=== PATIENT | male | born 1990 | race Caucasian/White ===

== ENCOUNTER 2017-03-07 16:06 | Emergency (ER) | payer BC ==
[2017-03-07 16:17] VITALS: RESP 16; TEMP 97.5
--- NOTE | 2017-03-07 17:06 | EDPHY ---
H & P Stated Complaint: L elbow injury--tackled playing rugby, no other injuries Time Seen by Provider: 03/07/17 17:03 HPI/ROS: CHIEF COMPLAINT: Left elbow injury HISTORY OF PRESENT ILLNESS: The patient is brought into the emergency department by paramedics as a limited trauma activation. The patient was playing rugby when he sustained a left elbow injury resulting in pain, deformity and numbness to the forearm. The patient did not strike his head or lose consciousness. Paramedics were unable to establish an IV. The patient received 200 mcg of fentanyl intranasally. The patient currently complains of 10/10 pain. He complains of paresthesias in his forearm. He denies weakness. He denies additional injury. REVIEW OF SYSTEMS: A comprehensive 10 point review of systems is otherwise negative aside from elements mentioned in the history of present illness. Source: Patient Exam Limitations: No limitations - Personal History Current Tetanus/Diphtheria Vaccine: Unsure Current Tetanus Diphtheria and Acellular Pertussis (TDAP): Unsure - Medical/Surgical History Hx Asthma: No Hx Chronic Respiratory Disease: No Hx Diabetes: No Hx Cardiac Disease: No Hx Renal Disease: No Hx Cirrhosis: No Hx Alcoholism: No Hx HIV/AIDS: No Hx Splenectomy or Spleen Trauma: No Other PMH: healthy - Social History Smoking Status: Never smoked - Physical Exam Exam: General Appearance: Alert, moderate distress secondary to pain Head: Atraumatic Eyes: Pupils equal, round, reactive ENT, Mouth: No hemotympanum, no oral trauma Neck: Nontender, trachea midline Respiratory: No chest wall tender, subcutaneous air, lungs clear bilaterally Cardiovascular: Regular rate and rhythm Abdomen: Abdomen is soft and nontender, pelvis stable Skin: No lacerations, No abrasion Back: No midline T/L/S pain Extremities: Obvious deformity consistent with a elbow dislocation noted Neurological: Decreased sensation to light touch along the volar aspect of the forearm, 2+ dorsalis pedis and ulnar pulses Constitutional: Initial Vital Signs Temperature (C) 36.4 C 03/07/17 16:14 Heart Rate 89 03/07/17 16:14 Respiratory Rate 16 03/07/17 16:14 Blood Pressure 145/91 H 03/07/17 16:14 O2 Sat (%) 99 03/07/17 16:14 O2 Delivery Mode Nasal Cannula O2 (L/minute) 2 Allergies/Adverse Reactions: No Known Allergies Allergy (Unverified 03/07/17 16:14) Home Medications: Medication Instructions Recorded Hydrocodone/APAP 325 [Bradley 1 - 2 each PO Q6 PRN #20 tab 03/07/17] Medical Decision Making - Diagnostics Imaging: Imaging Impressions Elbow X-Ray 03/07/17 16:09 Impression: Indeterminate age olecranon chip. Equivocal nondisplaced radial head fracture. Recommendation: Treating the elbow as if there is a fracture and obtaining follow-up x-rays in 7-10 days. Procedures: Procedure: Dislocation reduction. Indication: Dislocation The elbow was reduced in the usual fashion without complications. Post reduction the patient's neurovascular exam is normal. Post reduction x-ray demonstrates reduction of the joint to the anatomic position. The procedure was performed by myself. Procedure: Splint placement. A ortho glass posterior splint was applied to the left upper extremity by the tech. After application of the splint I returned and re-examined the patient. The splint was adequately immobilizing the joint and distal to the splint the patient's circulation and sensation was intact. ED Course/Re-evaluation: The patient presents to the ED with an obvious elbow dislocation. The patient' s elbow was reduced by myself without complication after my clinical examination. Radiographs post reduction do demonstrate a small chip fracture off the olecranon a possible nondisplaced radial head fracture. The patient was noted to be neurologically intact following the reduction. The patient will be placed in a posterior splint. The patient will follow up with an orthopedic surgeon in his hometown in [facility] where he is returning this evening. Differential Diagnosis: Differential diagnosis considered includes fracture, sprain, dislocation, neurovascular injury Departure - Departure Disposition: Home, Routine, Self-Care Clinical Impression: Elbow dislocation Condition: Good Instructions: Elbow Dislocation (ED), Elbow Fracture (ED) Additional Instructions: 1. Wear splint until seen in follow-up by Orthopedic surgeon next week. 2. You had an elbow dislocation and may have a small nondisplaced elbow fracture. This should be evaluated by an orthopedic surgeon this week. 3. Ice as directed. 4. Take Ibuprofen or Motrin 600 mg by mouth three times a day. 5. Bradley as needed for severe pain 6. You have been given the contact number of the on-call orthopedic surgeon here [facility] if you would like to follow up locally. Referrals: Master,Florencio, MD [Medical Doctor] - As per Instructions
[2017-03-07] MEDS ORDERED: HYDROCOD/APAP 5/325 PREPACK#6 BTL TAKEHOME ONE (17:53)
[2017-03-07 17:56] VITALS: BP 144/81; PULSE 85; O2SAT 92
== END 2017-03-07 17:58 | disposition home or self-care (01) ==
PROC: 0RSMXZZ Reposition Left Elbow Joint, External Approach (ICD-10-PCS; principal; 2017-03-07)
DX: S53.105A Unspecified dislocation of left ulnohumeral joint, initial encounter (principal); X58.XXXA Exposure to other specified factors, initial encounter; Y93.63 Activity, rugby
CPT/HCPCS: A4565